=== PATIENT | female | born 2000 | race African-American/Black ===

== ENCOUNTER 2023-11-11 15:26 | Emergency (ER) | payer SELFPAY ==
[2023-11-11] MEDS ORDERED: NA CHLORIDE 0.9% 1,000 ML ONE (15:44)
[2023-11-11 15:58] LABS: Absolute Basophils 0.1 K/uL (0-0.5); Absolute Eosinophils 0.2 K/uL (0-0.5); Absolute Monocytes 0.5 K/uL (0.1-1.3); Absolute Neutrophil 7.4 K/uL (1.8-8.0); Basophils % 1.1 % (0-1.3); Eosinophils % 1.7 % (0-4.4); Hemoglobin 11.8 g/dL (12.0-15.0); Lymphocytes % 19.5 % (15.3-44.8); MCH 28.8 pg (27.0-35.0); MCHC 33.7 g/dL (32.0-36.0); MCV 85.4 fL (80-100); MPV 7.2 fL (7.6-11.3); Monocytes % 4.8 % (3.3-12.3); Neutrophils % 72.9 % (41.7-73.7); Nucleated Red Blood Cells % 0.1 % (0-0); Platelets 401 thou/uL (152-406); Red Cell Distribution Width 13.2 % (12.1-15.2)
--- NOTE | 2023-11-11 16:30 | RAD REPORT ---
EXAM DESCRIPTION: US - Transvaginal Study Probe - 11/11/2023 4:16 pm CLINICAL HISTORY: VAGINAL BLEEDING COMPARISON: No comparisons FINDINGS: The uterus is normal in size, shape and echotexture. The uterus measures 9.5 x 4.5 x 6.3 c m with volume of 142 cc . The endometrial stripe measures 14 mm which is thickened but within normal limits for premenopausal f emale Both ovaries are normal in size, shape and echotexture. The right ovary measures 3.5 x 1.8 x 1.3 cm with volume of 4.2 cc. The left ovary measures 2.9 x 1.5 x 1.5 cm with volume of 3.4 cc. No ovarian or parovarian lesions. No adnexal masses. Normal Doppler blood flow was demonstrated to both ovaries. No significant pelvic ascites. IMPRESSION: Endometrial thickening which is within normal limits for premenopausal female. Bilateral ovarian blood flow.
--- NOTE | 2023-11-11 17:06 | EDPHYS ---
Physician Documentation [facility] Name: Mumtaz Ho Age: 22 yrs Sex: Female : 2000 Arrival Date: 11/11/2023 Time: 15:26 Bed 4 Private MD: ED Physician Luisito Hung HPI: 11/10 17:02 This 22 yrs old Black Female presents to ER via Wheelchair with complaints of Vaginal beni Bleeding. 17:02 The patient presents with vaginal bleeding that is. Onset: The symptoms/episode beni began/occurred 3 day(s) ago. Modifying factors: The symptoms are alleviated by nothing, the symptoms are aggravated by nothing. Associated signs and symptoms: The patient has no apparent associated signs or symptoms. Severity of symptoms: At their worst the symptoms were mild, moderate, in the emergency department the symptoms have improved, mildly. The patient is sexually active, The patient has not experienced similar symptoms in the past. 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 - Infectious Disease History:: Denies. - Family history:: not pertinent. - Social history:: Smoking status: Patient denies any tobacco usage or history of. ROS: 17:02 Constitutional: Negative for fever, chills, and weight loss, Eyes: Negative for injury, beni pain, redness, and discharge, ENT: Negative for injury, pain, and discharge, Neck: Negative for injury, pain, and swelling, Cardiovascular: Negative for chest pain, palpitations, and edema, Respiratory: Negative for shortness of breath, cough, wheezing, and pleuritic chest pain, Abdomen/GI: Negative for abdominal pain, nausea, vomiting, diarrhea, and constipation, Back: Negative for injury and pain, MS/Extremity: Negative for injury and deformity, Skin: Negative for injury, rash, and discoloration, Neuro: Negative for headache, weakness, numbness, tingling, and seizure, Psych: Negative for depression, anxiety, suicide ideation, homicidal ideation, and hallucinations, Allergy/Immunology: Negative for hives, rash, and allergies, Endocrine: Negative for neck swelling, polydipsia, polyuria, polyphagia, and marked weight changes, Hematologic/Lymphatic: Negative for swollen nodes, abnormal bleeding, and unusual bruising, 17:02 : Positive for vaginal bleeding, Exam: 17:02 Constitutional: This is a well developed, well nourished patient who is awake, alert, beni and in no acute distress. Head/Face: Normocephalic, atraumatic. Eyes: Pupils equal round and reactive to light, extra-ocular motions intact. Lids and lashes normal. Conjunctiva and sclera are non-icteric and not injected. Cornea within normal limits. Periorbital areas with no swelling, redness, or edema. ENT: Nares patent. No nasal discharge, no septal abnormalities noted. Tympanic membranes are normal and external auditory canals are clear. Oropharynx with no redness, swelling, or masses, exudates, or evidence of obstruction, uvula midline. Mucous membranes moist. Neck: Trachea midline, no thyromegaly or masses palpated, and no cervical lymphadenopathy. Supple, full range of motion without nuchal rigidity, or vertebral point tenderness. No Meningismus. Chest/axilla: Normal chest wall appearance and motion. Nontender with no deformity. No lesions are appreciated. Cardiovascular: Regular rate and rhythm with a normal S1 and S2. No gallops, murmurs, or rubs. Normal PMI, no JVD. No pulse deficits. Respiratory: Lungs have equal breath sounds bilaterally, clear to auscultation and percussion. No rales, rhonchi or wheezes noted. No increased work of breathing, no retractions or nasal flaring. Abdomen/GI: Soft, non-tender, with normal bowel sounds. No distension or tympany. No guarding or rebound. No evidence of tenderness throughout. Back: No spinal tenderness. No costovertebral tenderness. Full range of motion. Skin: Warm, dry with normal turgor. Normal color with no rashes, no lesions, and no evidence of cellulitis. MS/ Extremity: Pulses equal, no cyanosis. Neurovascular intact. Full, normal range of motion. Neuro: Awake and alert, GCS 15, oriented to person, place, time, and situation. Cranial nerves II-XII grossly intact. Motor strength 5/5 in all extremities. Sensory grossly intact. Cerebellar exam normal. Normal gait. Psych: Awake, alert, with orientation to person, place and time. Behavior, mood, and affect are within normal limits. Vital Signs: 15:48 BP 147 / 75; Pulse 113; Resp 18; Temp 98.1(TE); Pulse Ox 98% on R/A; Weight 95.25 kg; ld1 Height 5 ft. 6 in. ; 16:23 BP 136 / 77; Pulse 106; Resp 18; Pulse Ox 99% on R/A; iw 17:05 BP 125 / 78; Pulse 90; Resp 18; Pulse Ox 100% on R/A; ld1 17:58 BP 132 / 74; Pulse 91; Resp 18; Pulse Ox 100% on R/A; ld1 18:47 BP 142 / 90; Pulse 89; Resp 16; Pulse Ox 98% on R/A; iw 15:48 Body Mass Index 33.89 (95.25 kg, 167.64 cm) ld1 MDM: 15:41 Patient medically screened. [facility] 17:04 Differential diagnosis: dysmenorrhea, nonspecific abdominal pain, postcoital bleeding, beni uterine fibroids, urinary tract infection, vaginosis. Data reviewed: vital signs, nurses notes, lab test result(s), radiologic studies, ultrasound. Consideration of Admission/Observation Escalation of care including admission/observation considered. I considered the following discharge prescriptions or medication management in the emergency department Medications were administered in the Emergency Department. See MAR. Test considered but Not performed: CT: no ct abd pelvis. Care significantly affected by the following chronic conditions: Hypertension, Obesity. 11/10 15:42 Order name: Abo/rh Typing; Complete Time: 16:45 [facility] 11/10 15:42 Order name: Basic Metabolic Panel; Complete Time: 16:27 [facility] 11/10 15:42 Order name: CBC with Diff; Complete Time: 16:27 [facility] 11/10 15:42 Order name: Test, Urine; Complete Time: 17:51 [facility] 11/10 15:42 Order name: Urinalysis w/ reflexes; Complete Time: 17:51 [facility] 11/10 17:40 Order name: LAB Add On eb 11/10 17:43 Order name: HCG, Quantitative; Complete Time: 18:24 EDMS 11/10 17:51 Order name: Urine Creatinine; Complete Time: 18:24 [facility] 11/10 15:42 Order name: US Transvaginal Study (Probe); Complete Time: 16:45 beni 11/10 15:42 Order name: IV Saline Lock; Complete Time: 15:48 beni 11/10 15:42 Order name: Labs collected and sent; Complete Time: 15:48 beni 11/10 15:42 Order name: NPO; Complete Time: 15:43 beni Administered Medications: 15:48 Drug: NS 0.9% IV 1000 ml IV at 1 bolus Per protocol; 1000 mL bolus Route: IV; Rate: 1 ld1 bolus; Site: right antecubital; 17:00 Follow up: IV Status: Completed infusion iw Disposition Summary: 11/11/23 18:26 Discharge Ordered Notes: Location: Home(11/11/23 18:26) beni Problem: new(11/11/23 18:26) beni Symptoms: have improved(11/11/23 18:26) beni Condition: Stable(11/11/23 18:26) beni Diagnosis - Other hemorrhage in early beni - Threatened beni Followup: beni - With: Private Physician - When: 2 - 3 days - Reason: Recheck today's complaints, Continuance of care, Re-evaluation by your physician Discharge Instructions: - Discharge Summary Sheet beni - Ectopic beni - Threatened Miscarriage beni - Vaginal Bleeding During , First Trimester beni - Threatened Miscarriage, [id number] beni - Ectopic , Hodq-uk-Rhmy beni Forms: - Medication Reconciliation Form beni - Antibiotic Education beni - Prescription Opioid Use beni - Patient Portal Instructions beni - Leadership Thank You Letter beni Signatures: Dispatcher [employer] Luisito Christianson MD MD cha Williams, Irene RN SASHA iw Jes Paredes RN RN ld1 Dianne Berkowitz RN RN ar6 Corrections: (The following items were deleted from the chart) 15:43 15:43 ABO/RH TYPING+BB.LAB.BRZ ordered. EDMS EDMS 15:43 15:43 BASIC METABOLIC PANEL+C.LAB.BRZ ordered. EDMS EDMS 15:43 15:43 CBC+H.LAB.BRZ ordered. EDMS EDMS 15:43 15:43 Test, Urine+UC.LAB.BRZ ordered. EDMS EDMS 15:43 15:43 Urinalysis+U.LAB.BRZ ordered. EDMS EDMS 17:50 17:06 Home beni beni 17:50 17:06 new beni beni 17:50 17:06 have improved beni beni 17:50 17:06 Stable beni beni 17:50 17:06 Abnormal uterine and vaginal bleeding, unspecified beni beni
--- NOTE | 2023-11-11 17:06 | ER ---
Nurse's Notes [facility] Name: Mumtaz Ho Age: 22 yrs Sex: Female : 2000 Arrival Date: 11/11/2023 Time: 15:26 Bed 4 Private MD: Diagnosis: Other hemorrhage in early ;Threatened Presentation: 11/10 15:42 Chief complaint: Patient states: stopped her control 2 weeks ago and has had her iw period since then , she started having heavy bleeding with clots about an hour ago. Initial Sepsis Screen: Does the patient meet any 2 criteria? No. Patient's initial sepsis screen is negative. Does the patient have a suspected source of infection? No. Patient's initial sepsis screen is negative. Risk Assessment: Do you want to hurt yourself or someone else? Patient reports no desire to harm self or others. Onset of symptoms was November 11, 2023. 15:42 Method Of Arrival: Wheelchair iw 15:42 Acuity: MARIELA 3 iw 18:48 Coronavirus screen: At this time, the client does not indicate any symptoms associated iw with coronavirus-19. Ebola Screen: No symptoms or risks identified at this time. 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 - Infectious Disease History:: Denies. - Family history:: not pertinent. - Social history:: Smoking status: Patient denies any tobacco usage or history of. Screenin:00 [facility] ED Fall Risk Assessment (Adult) History of falling in the last 3 months, ar6 including since admission No falls in past 3 months (0 pts) Confusion or Disorientation No (0 pts) Intoxicated or Sedated No (0 pts) Impaired Gait No (0 pts) Mobility Assist Device Used No (0 pt) Altered Elimination No (0 pt) Score/Fall Risk Level 0 - 2 = Low Risk. [facility] ED Fall Risk Assessment (Adult) Score/Fall Risk Level 0 - 2 = Low Risk Oriented to surroundings, Maintained a safe environment, Educated pt \T\ family on fall prevention, incl call for assistance when getting out of bed, Assessed \T\ reinforced patient's understanding of fall precautions, Provided non-skid footwear, Hourly rounding (assess needs \T\ fall precautionary measures) done, Used ambulatory aids as needed (educated on \T\ assisted with), Used gait belt as appropriate. Abuse screen: Denies threats or abuse. Denies injuries from another. Nutritional screening: No deficits noted. Tuberculosis screening: No symptoms or risk factors identified. Assessment: 16:00 General: Appears in no apparent distress. comfortable, Behavior is calm, cooperative, ar6 appropriate for age. Pain: Complains of pain in abdomen and pelvis Pain does not radiate. Pain currently is 5 out of 10 on a pain scale. Quality of pain is described as crampy, squeezing, Pain began gradually, Is intermittent. Neuro: Level of Consciousness is awake, alert, obeys commands, Oriented to person, place, time, situation. Cardiovascular: Capillary refill < 3 seconds. Respiratory: Airway is patent. GI: Abdomen is round non-distended, Bowel sounds present X 4 quads. Abd is soft X 4 quads Abdomen is tender to palpation X 4 quads. : No signs and/or symptoms were reported regarding the genitourinary system. Reports vaginal bleeding that is brown, with clots, heavy flow. EENT: Oral mucosa is moist. Derm: Skin is intact, is healthy with good turgor, Skin is dry, Skin is pink, warm \T\ dry. Musculoskeletal:. 16:23 Reassessment: Patient appears in no apparent distress at this time. Patient and/or iw family updated on plan of care and expected duration. Pain level reassessed. pt up to bathroom via wheelchair, urine sample collected. 17:27 Reassessment: Patient appears in no apparent distress at this time. Patient and/or iw family updated on plan of care and expected duration. Pain level reassessed. Patient is alert, oriented x 3, equal unlabored respirations, skin warm/dry/pink. Vital Signs: 15:48 BP 147 / 75; Pulse 113; Resp 18; Temp 98.1(TE); Pulse Ox 98% on R/A; Weight 95.25 kg; ld1 Height 5 ft. 6 in. ; 16:23 BP 136 / 77; Pulse 106; Resp 18; Pulse Ox 99% on R/A; iw 17:05 BP 125 / 78; Pulse 90; Resp 18; Pulse Ox 100% on R/A; ld1 17:58 BP 132 / 74; Pulse 91; Resp 18; Pulse Ox 100% on R/A; ld1 18:47 BP 142 / 90; Pulse 89; Resp 16; Pulse Ox 98% on R/A; iw 15:48 Body Mass Index 33.89 (95.25 kg, 167.64 cm) ld1 ED Course: 15:28 Patient arrived in ED. mg5 15:41 Luisito Hung MD is Attending Physician. beni 15:43 Triage completed. iw 15:43 Arm band placed on. iw 16:00 Dianne Berkowitz, RN is Primary Nurse. ar6 16:00 No apparent distress. Awaiting lab results. ar6 16:00 Patient has correct armband on for positive identification. Placed in gown. Bed in low ar6 position. Call light in reach. Side rails up X2. Pulse ox on. NIBP on. Door closed. Noise minimized. Warm blanket given. 16:00 Inserted saline lock: 20 gauge in right antecubital area, using aseptic technique. ar6 Blood collected. Flushed with 10 mL NS. 16:08 Abo/rh Typing Sent. ar6 16:08 Basic Metabolic Panel Sent. ar6 16:08 CBC with Diff Sent. ar6 16:08 Test, Urine Sent. ar6 16:08 Urinalysis w/ reflexes Sent. ar6 16:18 US Transvaginal Study (Probe) In Process Unspecified. EDMS 17:05 Nirali Lujan MD is Referral Physician. beni 17:27 No provider procedures requiring assistance completed. iw 18:40 Provided Education on: d/c follow up instructions . iw 18:48 IV discontinued, intact, bleeding controlled, No redness/swelling at site. Pressure iw dressing applied. Administered Medications: 15:48 Drug: NS 0.9% IV 1000 ml IV at 1 bolus Per protocol; 1000 mL bolus Route: IV; Rate: 1 ld1 bolus; Site: right antecubital; 17:00 Follow up: IV Status: Completed infusion iw Medication: 16:00 VIS not applicable for this client. ar6 Outcome: 17:06 Discharge ordered by . beni 18:26 Discharge ordered by . beni 18:48 Discharged to home ambulatory, with family, iw 18:48 Condition: good 18:48 Discharge instructions given to patient, Instructed on discharge instructions, follow up and referral plans. Demonstrated understanding of instructions, follow-up care, 18:53 Patient left the ED. iw Signatures: Dispatcher [employer] Luisito Christianson MD MD cha Williams, Irene, RN SASHA iw Jes Paredes RN RN ld1 Marcelle Lee 5 Dianne Berkowitz RN RN ar6
[2023-11-11 17:36] LABS: Specific Gravity > 1.030 (1.005-1.030)
[2023-11-11 17:37] LABS: Specific Gravity > 1.030 (1.005-1.030); Sqamous Epithelial <5 /HPF (None Seen); Urine Bacteria None Seen /HPF (<20); Urine Bilirubin NEGATIVE (Negative); Urine Blood 3+ (OVER) (Negative); Urine Clarity Extremely Turbid (Clear); Urine Color Light-Orange (Yellow); Urine Culture Reflex Order NOT NEEDED; Urine Glucose NEGATIVE (Negative); Urine Ketones NEGATIVE (Negative); Urine Microscopic Reflex YN ORDER UMIC; Urine Mucus 2+ /HPF (None Seen); Urine Nitrite NEGATIVE (Negative); Urine Protein 1+ (Negative); Urine RBC >50 /HPF (None Seen); Urine Urobilinogen Normal (Normal); Urine WBC <5 /HPF (<5); Urine pH 5.5 (5.0-7.0)
[2023-11-11 19:06] VITALS: TEMP 98.1
[2023-11-11 19:11] VITALS: BP 142/90; O2SAT 98
== END 2023-11-11 18:53 | disposition home or self-care (01) ==
LOC: ER 15:26
DX: O20.0 Threatened abortion (principal)
CPT/HCPCS: 36415; 76830; 80048; 81001; 81025; 82570; 84702; 85025; 86900; 86901; 96360; 99284; J7030